=== PATIENT | male | born 1995 | race Hispanic/Latino ===

== ENCOUNTER 2019-03-18 13:36 | Inpatient (IN) | payer MEDICAID, OTHER ==
[~2019-03-18] VITALS: Ht 167.6 cm; Wt 70.4 kg
[~2019-03-18 13:36] MED LIST: VERA120T13 PO
[2019-03-18] MEDS ORDERED: ADENOSINE 3 MG/ML 2ML VIAL IV ONE (13:39)
[2019-03-18] MEDS ORDERED: DILTIAZEM HCL 5 MG/ML 10 ML VIAL IV ONE (13:47)
[2019-03-18] MEDS ORDERED: DILTIAZEM HCL 125 MG/25 ML VIAL IV ONE (13:47)
[2019-03-18] MEDS ORDERED: SODIUM CHLORIDE 0.9% 100 ML IV ONE (13:48)
[2019-03-18] MEDS ORDERED: CALCIUM GLUCONATE 1 GM/10 ML VIAL IV ONE (14:03)
[2019-03-18] MEDS ORDERED: SODIUM CHLORIDE 0.9% 1000ML 1,000 ML IV ONE ×2 (14:04→21:06)
[2019-03-18] MEDS ORDERED: SODIUM CHLORIDE 0.9% 50 ML IV ONE (14:05)
[2019-03-18 14:44] LABS: BASOPHILS % (AUTO) 0.5 % (0.0-5.0); EOSINOPHILS % (AUTO) 0.1 % (0.0-8.0); HEMATOCRIT 48.3 % (42-54); LYMPHOCYTES % (AUTO) 11.3 % (21.0-51.0); MEAN CORPUSCULAR HEMOGLOBIN 30.4 pg (27.0-33.0); MEAN CORPUSCULAR HGB CONC 35.6 g/dL (32.0-36.0); MEAN CORPUSCULAR VOLUME 85.5 fL (79-99); MONOCYTES % (AUTO) 6.8 % (3.0-13.0); NEUTROPHILS % (AUTO) 80.8 % (40.0-77.0); PLATELET COUNT (AUTO) 263 K/uL (130-400); RED BLOOD CELL COUNT(AUTO) 5.65 MIL/uL (4.50-6.20); RED CELL DISTRIBUTION WIDTH 13.3 % (11.0-15.5); WHITE BLOOD COUNT (AUTO) 12.9 K/uL (4.8-10.8)
[2019-03-18 15:01] LABS: CREATININE 1.8 mg/dL (0.5-1.5); POTASSIUM 3.6 mmol/L (3.5-5.1)
[2019-03-18 15:06] LABS: MAGNESIUM 1.8 mg/dL (1.80-2.40)
[2019-03-18 15:23] LABS: B-TYPE NATRIURETIC PEPTIDE 26 pg/mL (0-100)
[2019-03-18] MEDS ORDERED: METOPROLOL TARTRATE 50 MG TAB ONE (16:59)
[2019-03-18 17:17] LABS: AMPHET/METH SCREEN,URINE NEGATIVE (NEGATIVE); BARBITURATE SCREEN, URINE NEGATIVE (NEGATIVE); BENZODIAZEPINES SCREEN,URINE NEGATIVE (NEGATIVE); CANNABINOID SCREEN,URINE NEGATIVE (NEGATIVE); COCAINE SCREEN,URINE NEGATIVE (NEGATIVE); OPIATE SCREEN,URINE NEGATIVE (NEGATIVE); PHENCYCLIDINE SCREEN,URINE NEGATIVE (NEGATIVE)
[2019-03-18] MEDS ORDERED: SODIUM CHLORIDE 0.9% 1000ML 1,000 ML IV SCH (20:44)
[2019-03-18] MEDS ORDERED: ACETAMINOPHEN 325 MG TAB PO PRN ×2 (20:45)
[2019-03-18] MEDS ORDERED: ONDANSETRON HCL 4 MG/2 ML VIAL IV PRN (20:45)
[2019-03-18] MEDS ORDERED: NITROGLYCERIN 0.4 MG SL TAB SL PRN (20:45)
[2019-03-18] MEDS ORDERED: FAMOTIDINE 20MG TAB 20 MG TAB PO SCH (21:00)
[2019-03-18] MEDS ORDERED: DILTIAZEM 125MG+100 ML NS 125 ML IV PRN (21:00)
[2019-03-18] MEDS ORDERED: FAMOTIDINE 20MG TAB 20 MG TAB ONE (21:05)
[2019-03-18 21:52] LABS: TROPONIN I 0.62 ng/mL (0.00-0.06)
[2019-03-18 22:07] LABS: MAGNESIUM 1.7 mg/dL (1.80-2.40); THYROID STIMULATING HORMONE 0.41 uIU/mL (0.36-3.74)
[2019-03-18] MEDS ORDERED: MAGNESIUM 2GM PREMIX 50ML 50 ML IV PRN (23:15)
[2019-03-18 23:49] VITALS: BP 147/88
[2019-03-19 01:23] LABS: APPEARANCE,URINE Clear (CLEAR); BILIRUBIN,URINE Negative (NEGATIVE); COLOR,URINE Yellow (YELLOW); GLUCOSE, URINE (UA) Negative (NEGATIVE); KETONES,URINE Negative (NEGATIVE); LEUKOCYTE ESTERASE ,URINE Negative (NEGATIVE); NITRATE,URINE Negative (NEGATIVE); OCCULT BLOOD,URINE Negative (NEGATIVE); PH,URINE 7.5 (5.0-8.0); PROTEIN,URINE Negative (NEGATIVE)
[2019-03-19 03:00] VITALS: BP 115/72
[2019-03-19 05:25] LABS: HEMATOCRIT 45.6 % (42-54); MEAN CORPUSCULAR HGB CONC 35.1 g/dL (32.0-36.0); MEAN CORPUSCULAR VOLUME 85.4 fL (79-99); PLATELET COUNT (AUTO) 224 K/uL (130-400); RED BLOOD CELL COUNT(AUTO) 5.34 MIL/uL (4.50-6.20); RED CELL DISTRIBUTION WIDTH 13.4 % (11.0-15.5); WHITE BLOOD COUNT (AUTO) 8.3 K/uL (4.8-10.8)
[2019-03-19 05:43] LABS: BAND NEUTROPHILS % (MANUAL) 3 % (0-2); EOSINOPHILS % (MANUAL) 1 % (1-6); LYMPHOCYTES % (MANUAL) 36 % (22-44); MAN.DIFF COMMENT-IMPRESSION MANUAL DIFFERENTIAL; MONOCYTES % (MANUAL) 9 % (2-9); PLATELET MORPHOLOGY COMMENT ADEQUATE; SEGMENTED NEUTROPHILS % 51 % (40-70)
[2019-03-19 05:58] LABS: ALBUMIN 3.8 g/dL (3.5-5.0); BILIRUBIN,TOTAL 1.6 mg/dL (0.2-1.0); CREATININE 0.8 mg/dL (0.5-1.5); MAGNESIUM 2.4 mg/dL (1.80-2.40); POTASSIUM 3.8 mmol/L (3.5-5.1); TOTAL PROTEIN, SERUM 6.6 g/dL (6.0-8.3)
[2019-03-19 06:00] LABS: TROPONIN I 0.73 ng/mL (0.00-0.06)
[2019-03-19 07:15] VITALS: BP 127/79
[2019-03-19] MEDS ORDERED: ENOXAPARIN SODIUM 30 MG/0.3 ML SQ SCH (09:00)
[2019-03-19] MEDS ORDERED: VERAPAMIL HCL 240 MG SRTAB PO ONE (09:02)
[2019-03-19] MEDS ORDERED: VERAPAMIL HCL 240 MG SRTAB PO SCH (09:13)
[2019-03-19 11:20] VITALS: BP 131/86
[2019-03-19] MEDS ORDERED: VERA120T13 PO (11:26)
[2019-03-19 15:54] VITALS: BP 117/72
--- NOTE | 2019-03-20 09:20 | NUR ---
DC PLAN PATIENT DISCHARGED WAS ALREADY GONE. NO NEEDS VERBALIZED BY NURSING STAFF. Addendum: 03/20/19 at 0921 by LEILANI CARDOZA RN CM Amended: Links added.
== END 2019-03-19 16:40 | disposition home or self-care (01) | DRG 310 ==
LOC: EDH 13:36 → EDHIP 13:37 → 2DH 23:49
PROVIDERS: ADMIT Hospitalist; ATTEND Hospitalist
DX: I47.1 Supraventricular tachycardia (principal); E83.42 Hypomagnesemia; D72.829 Elevated white blood cell count, unspecified; R79.89 Other specified abnormal findings of blood chemistry
CPT/HCPCS: 36415; 71045; 80048; 80053; 80305; 81003; 82550; 83735; 83874; 83880; 84439; 84443; 84481; 84484; 85025; 87804; 93005; 93306; 99291; G0378; J0153; J0610; J3475; J3490; J7030

== ENCOUNTER 2020-03-16 13:16 | Emergency (ER) | payer OTHER, SELFPAY ==
[2020-03-16 13:47] LABS: BASOPHILS % (AUTO) 0.3 % (0.0-5.0); EOSINOPHILS % (AUTO) 0.2 % (0.0-8.0); HEMATOCRIT 50.8 % (42-54); LYMPHOCYTES % (AUTO) 13.5 % (21.0-51.0); MEAN CORPUSCULAR HEMOGLOBIN 30.7 pg (27.0-33.0); MEAN CORPUSCULAR VOLUME 85.2 fL (79-99); MONOCYTES % (AUTO) 2.3 % (3.0-13.0); NEUTROPHILS % (AUTO) 83.5 % (40.0-77.0); PLATELET COUNT (AUTO) 280 K/uL (130-400); RED BLOOD CELL COUNT(AUTO) 5.96 MIL/uL (4.50-6.20); RED CELL DISTRIBUTION WIDTH 13.3 % (11.0-15.5); WHITE BLOOD COUNT (AUTO) 10.1 K/uL (4.8-10.8)
[2020-03-16] MEDS ORDERED: ONDANSETRON HCL 4 MG/2 ML VIAL ONE (13:55)
[2020-03-16] MEDS ORDERED: SODIUM CHLORIDE 0.9% 1000ML 1,000 ML IV ONE (13:56)
[2020-03-16 14:18] LABS: APPEARANCE,URINE Clear (CLEAR); BILIRUBIN,URINE Negative (NEGATIVE); COLOR,URINE Yellow (YELLOW); GLUCOSE, URINE (UA) Negative (NEGATIVE); KETONES,URINE >=80 mg/dL (NEGATIVE); LEUKOCYTE ESTERASE ,URINE Negative (NEGATIVE); NITRATE,URINE Negative (NEGATIVE); OCCULT BLOOD,URINE Negative (NEGATIVE); PH,URINE 6.5 (5.0-8.0); PROTEIN,URINE Negative (NEGATIVE)
[2020-03-16 14:23] LABS: INR 1.07 (0.85-1.15); PROTHROMBIN TIME 11.4 SEC (9.6-11.6)
[2020-03-16 14:25] LABS: PARTIAL THROMBOPLASTIN TIME 26.2 SEC (26.3-35.5)
[2020-03-16 14:26] LABS: AMPHET/METH SCREEN,URINE NEGATIVE (NEGATIVE); BARBITURATE SCREEN, URINE NEGATIVE (NEGATIVE); BENZODIAZEPINES SCREEN,URINE NEGATIVE (NEGATIVE); CANNABINOID SCREEN,URINE NEGATIVE (NEGATIVE); COCAINE SCREEN,URINE NEGATIVE (NEGATIVE); OPIATE SCREEN,URINE NEGATIVE (NEGATIVE); PHENCYCLIDINE SCREEN,URINE NEGATIVE (NEGATIVE)
[2020-03-16 14:33] LABS: POTASSIUM 3.6 mmol/L (3.5-5.1)
[2020-03-16 14:37] LABS: ALBUMIN 4.9 g/dL (3.5-5.0); BILIRUBIN,TOTAL 1.9 mg/dL (0.2-1.0); TOTAL PROTEIN, SERUM 7.9 g/dL (6.0-8.3)
[2020-03-16 17:38] LABS: T4 (THYROXINE) 9.5 ug/dL (4.7-13.3); THYROID STIMULATING HORMONE 0.49 uIU/mL (0.36-3.74)
== END 2020-03-16 18:11 | disposition home or self-care (01) ==
LOC: EDH 13:16
DX: M94.0 Chondrocostal junction syndrome [Tietze] (principal); A08.4 Viral intestinal infection, unspecified
CPT/HCPCS: 36415; 71045; 80053; 80305; 81003; 82550; 83690; 84436; 84443; 84481; 84484; 85025; 85610; 85730; 93005; 96374; 99285; J2405; J7030